=== PATIENT | male | born 1940 | race Two or more races ===

== ENCOUNTER 2016-08-17 21:08 | Emergency (ER) | payer MEDICARE ==
[~2016-08-17] VITALS: Ht 167.6 cm; Wt 75.1 kg
[2016-08-17] MEDS ORDERED: OMNIPAQUE 350 MG/ML, 100ML BOTTLE ONE (21:33)
[2016-08-17] MEDS ORDERED: AMLO10TA2 PO (21:37)
[2016-08-17] MEDS ORDERED: LOSA50TA6 PO (21:37)
[2016-08-17] MEDS ORDERED: MORPHINE SULFATE 4 MG/ML, 1ML IVPush PRN (22:00)
[2016-08-17] MEDS ORDERED: SODIUM CHLORIDE 0.9% 1,000ML IVBOLUS ONE (22:00)
[2016-08-17] MEDS ORDERED: ONDANSETRON 2MG/ML, 2ML IVPush ONE (22:00)
[2016-08-17 22:17] LABS: ASPARTATE AMINO TRANSFERASE 25 U/L (15-37); BLOOD UREA NITROGEN 13 mg/dL (7-18)
[2016-08-17] MEDS ORDERED: METRONIDAZOLE PMX 500MG/100ML 0 ML ONE (23:29)
[2016-08-17] MEDS ORDERED: CIPROFLOXACIN/PMX 400MG/200ML 0 ML ONE (23:29)
[2016-08-17] MEDS ORDERED: CIPROFLOXACIN 500 MG TABLET PO ONE (23:30)
[2016-08-17] MEDS ORDERED: metroNIDAZOLE 500 MG TABLET PO ONE (23:30)
[2016-08-17] MEDS ORDERED: MORPHINE SULFATE 4 MG/ML, 1ML ONE (23:40)
[2016-08-17] MEDS ORDERED: ONDANSETRON 2MG/ML, 2ML ONE (23:41)
[2016-08-17] MEDS ORDERED: CIPROFLOXACIN 500 MG TABLET ONE (23:41)
[2016-08-17] MEDS ORDERED: metroNIDAZOLE 500 MG TABLET ONE (23:41)
[2016-08-18 00:20] VITALS: BP 146/85
== END 2016-08-18 00:34 | disposition home or self-care (01) ==
LOC: ED 08-18 00:28
DX: K57.32 Diverticulitis of large intestine without perforation or abscess without bleeding (principal); R10.32 Left lower quadrant pain; I10 Essential (primary) hypertension
CPT/HCPCS: 36415; 74177; 80053; 81001; 83690; 85025; 96374; 96375; 99285; J2405; J7030; Q9967